=== PATIENT | female | born 1990 | race African-American/Black ===

== ENCOUNTER 2017-03-10 19:09 | Emergency (ER) | payer MEDICAID ==
[~2017-03-10] VITALS: Ht 172.7 cm; Wt 95.0 kg
[2017-03-10 23:31] VITALS: BP 148/86
[2017-03-11 00:15] LABS: BASOPHILS % 0.4 % (0.0-2.0); CHLORIDE 105 mEq/L (98-107); EOSINOPHILS % 0.7 % (0.0-5.0); HEMATOCRIT. 40.8 % (36.0-48.0); LYMPHOCYTES % 39.6 % (20.0-50.0); MEAN CORPUSCULAR HEMOGLOBIN 29.5 pg (28.0-32.0); MEAN CORPUSCULAR VOLUME 86.3 fL (81.0-99.0); MONOCYTES % 7.5 % (2.0-8.0); NEUTROPHILS % 51.8 % (40.0-76.0); PLATELET 208 x1000/uL (130-400); RED BLOOD CELL COUNT 4.73 mill/uL (4.2-5.4); RED CELL DISTRIBUTION WIDTH 14.2 % (11.6-14.6)
[2017-03-11 00:16] LABS: CLARITY URINE CLEAR (CLEAR); COLOR URINE DARK YELLOW (YELLOW); KETONES URINE TRACE (NEGATIVE); LEUKOCYTE ESTERASE URINE NEGATIVE (NEGATIVE); NITRITE URINE NEGATIVE (NEGATIVE); OCCULT BLOOD URINE NEGATIVE (NEGATIVE); PH URINE 5.5 (4.5-8.0); PROTEIN URINE NEGATIVE (NEGATIVE); SPECIFIC GRAVITY URINE 1.039 (1.005-1.030)
[2017-03-11 00:19] LABS: INR 1.1; PROTHROMBIN TIME 11.2 sec
[2017-03-11 00:32] LABS: CARBON DIOXIDE 24 mEq/L (21-32)
[2017-03-11 00:38] LABS: B-HCG QUANTITATIVE 1030 mIU/mL (<3)
[2017-03-11] MEDS ORDERED: PENICILLIN G BENZATHINE 2,400,000 UNITS/4ML SYR IM ONE (01:00)
== END 2017-03-11 01:55 | disposition home or self-care (01) ==
LOC: ER 19:11
DX: O26.891 Other specified pregnancy related conditions, first trimester (principal); R10.84 Generalized abdominal pain; Z3A.01 Less than 8 weeks gestation of pregnancy
CPT/HCPCS: 36415; 76801; 76817; 80053; 81003; 81025; 84702; 85025; 85610; 86592; 86780; 86850; 86900; 86901; 96372; 99285; J0561; Z7610